=== PATIENT | male | born 1985 | race American Indian/Alaskan Native ===

== ENCOUNTER 2017-10-19 20:33 | Emergency (ER) | payer OTHER ==
[2017-10-19 20:33] VITALS: BMI 32.1
--- NOTE | 2017-10-19 21:39 | ED PDOC ---
Arrival/HPI - General Chief Complaint: Allergic Reaction Time Seen by Provider: 10/19/17 21:34 Historian: Patient - History of Present Illness Narrative History of Present Illness (Text): 10/19/17 21:36 32-year-old male presents today with generalized pruritus since the end of June. Patient denies chest pain or shortness of breath. Denies fevers or chills. He denies new soaps lotions detergents or colognes. He denies any new medications. Patient states he has been taking Benadryl every 4-6 hours for the past few months for his itch. Patient states initially he thought it was related to Silver but states on occasion he will just become itchy on the arm the neck the back or the abdomen or lower legs. Patient states she has not followed up with his primary care physician or golf club maker. He denies symptoms in any other family members. No other complaints Past Medical History - Provider Review Nursing Documentation Reviewed: Yes - Travel History Have you recently traveled outside [place] w/in the past 3 mons?: No - Tetanus Immunization Tetanus Immunization: Unknown - Psychiatric Hx Psychophysiologic Disorder: No Hx Substance Use: No Family/Social History - Physician Review Nursing Documentation Reviewed: Yes Family/Social History: Unknown Family HX Smoking Status: Never Smoked Hx Alcohol Use: Yes Hx Substance Use: No Allergies/Home Meds Allergies/Adverse Reactions: Allergies Penicillins Allergy (Verified 10/19/17 20:48) RASH Review of Systems - Review of Systems Constitutional: absent: Fatigue, Fevers Respiratory: absent: SOB, Cough Cardiovascular: absent: Chest Pain, Palpitations Gastrointestinal: absent: Abdominal Pain, Nausea, Vomiting Musculoskeletal: absent: Arthralgias, Back Pain, Neck Pain Skin: Pruritis Neurological: absent: Headache, Dizziness Psychiatric: absent: Anxiety, Depression Physical Exam Vital Signs Reviewed: Yes Vital Signs Temp Pulse Resp BP Pulse Ox 10/19/17 22:15 98.4 F 78 20 120/78 98 10/19/17 20:49 98.5 F 80 16 116/84 97 Temperature: Afebrile Blood Pressure: Normal Pulse: Regular Respiratory Rate: Normal Appearance: Positive for: Well-Appearing, Non-Toxic, Comfortable Pain Distress: None Mental Status: Positive for: Alert and Oriented X 3 - Systems Exam Head: Present: Atraumatic Mouth: Present: Moist Mucous Membranes Neck: Present: Normal Range of Motion Respiratory/Chest: Present: Clear to Auscultation, Good Air Exchange. No: Respiratory Distress, Accessory Muscle Use Cardiovascular: Present: Regular Rate and Rhythm, Normal S1, S2. No: Murmurs Upper Extremity: Present: Normal ROM Lower Extremity: Present: Normal ROM Neurological: Present: GCS=15, Speech Normal Skin: Present: Warm, Dry, Normal Color. No: Rashes Psychiatric: Present: Alert, Oriented x 3 Medical Decision Making ED Course and Treatment: 10/19/17 21:40 pt is non toxic well appearing; no distress. stable vitals. pt with generalized pruritis x 3 months. cbc; wnl cmp; wnl pt was advised to f/u with golf club maker and continue taking benadryl PRN for itch. advised immediate return if signs of severe allergy develop Patient verbalizes understanding of discharge instructions and need for immediate followup. all aspects of this case were discussed the attending of record. Impression: Pruritus Continue Benadryl every 6 hours as needed for itch Follow with primary care physician within the next 2 days Follow-up with the golf club maker within the next 2 days Return immediately if symptoms worsen persist or if new symptoms develop: Shortness of breath, feeling of throat closing, worsening rash, or if any other concerning symptoms develop - Lab Interpretations Lab Results: 10/19/17 21:46 10/19/17 21:46 Lab Results 10/19/17 21:46: WBC 6.7, RBC 5.06, Hgb 15.1, Hct 45.2, MCV 89.3, MCH 29.8, MCHC 33.4, RDW 13.0, Plt Count 251, MPV 10.4, Gran % 32.4 L, Lymph % (Auto) 57.6 H, [place] % (Auto) 6.0, Eos % (Auto) 3.7, Baso % (Auto) 0.3, Gran # 2.16, Lymph # ( Auto) 3.8 H, [place] # (Auto) 0.4, Eos # (Auto) 0.3, Baso # (Auto) 0.02 10/19/17 21:46: Sodium 143, Potassium 4.2, Chloride 105, Carbon Dioxide 28, Anion Gap 14, BUN 17, Creatinine 1.0, Est GFR ( Amer) > 60, Est GFR (Non- Af Amer) > 60, Random Glucose 94, Calcium 9.3, Total Bilirubin 0.3, AST 28, ALT 43, Alkaline Phosphatase 52, Total Protein 8.1, Albumin 4.3, Globulin 3.7, Albumin/Globulin Ratio 1.2 Disposition/Present on Arrival - Present on Arrival Any Indicators Present on Arrival: No History of DVT/PE: No History of Uncontrolled Diabetes: No Urinary Catheter: No History of Decub. Ulcer: No History Surgical Site Infection Following: None - Disposition Have Diagnosis and Disposition been Completed?: Yes Diagnosis: Chronic pruritus Disposition: HOME/ ROUTINE Disposition Time: 21:42 Patient Plan: Discharge Patient Problems: Current Active Problems Problem Status Onset Chronic pruritus Acute Condition: GOOD Discharge Instructions (ExitCare): Itchy Skin Additional Instructions: Continue Benadryl every 6 hours as needed for itch Follow with primary care physician within the next 2 days Follow-up with the golf club maker within the next 2 days Return immediately if symptoms worsen persist or if new symptoms develop: Shortness of breath, feeling of throat closing, worsening rash, or if any other concerning symptoms develop Referrals: Estefani Vásquez MD [Staff Provider] - Follow up with primary Ramón Huggins MD [Staff Provider] - Follow up with primary Veronica Torrez MD [Medical Doctor] - Follow up with primary [employer] [facility] [employer] [Outside] - Follow up with primary Forms: [employer] (Bel[place])
[2017-10-19 22:02] LABS: BASO # 0.02 K/mm3 (0.0-2.0); BASO % 0.3 % (0.0-3.0); EOS # 0.3 (0.0-0.7); EOS % 3.7 % (1.5-5.0); GRAN # 2.16 (1.4-6.5); GRAN % 32.4 % (50.0-68.0); HEMOGLOBIN 15.1 g/dL (14.0-18.0); LYMPH # 3.8 (1.2-3.4); LYMPH % 57.6 % (22.0-35.0); MEAN CELL VOLUME 89.3 fl (80.0-105.0); MEAN CORPUSCULAR HEMOGLOBIN 29.8 pg (25.0-35.0); MEAN CORPUSCULAR HGB CONC 33.4 g/dl (31.0-37.0); MEAN PLATELET VOLUME 10.4 fl (7.0-11.0); MONO # 0.4 (0.1-0.6); RBC 5.06 10^6/uL (3.5-6.1); WHITE BLOOD COUNT 6.7 10^3/ul (4.5-11.0)
[2017-10-19 22:10] LABS: ALB/GLOB RATIO 1.2 (1.1-1.8); ALBUMIN 4.3 g/dL (3.0-4.8); ALT/SGPT 43 U/L (7-56); AST/SGOT 28 U/L (17-59); BLOOD UREA NITROGEN 17 mg/dL (7-21); CALCIUM 9.3 mg/dL (8.4-10.5); GFR AFRICAN-AMERICAN > 60; GFR NON-AFRICAN AMERICAN > 60
[2017-10-19 22:15] VITALS: BP 120/78; PULSE 78; RESP 20; TEMP 98.4; O2SAT 98
== END 2017-10-19 22:35 | disposition home or self-care (01) ==
LOC: ED 20:33
DX: L29.9 Pruritus, unspecified (principal)